=== PATIENT | male | born 1940 | race Caucasian/White ===

== ENCOUNTER → 2017-07-27 | Emergency (ER) | payer OTHER ==
[~2017-07-27] VITALS: Ht 177.8 cm; Wt 110.0 kg
[~2017-07-27] MED LIST: TAM75C PO; normal saline 1000ML IV soln IVB ONE; oseltamivir phos 75mg capsule PO ONE
[2017-07-27 12:46] LABS: BASOPHILS % (AUTO) 0 % (0-1); EOSINOPHILS # (AUTO) 0.2 X10'3 (0-0.9); EOSINOPHILS % (AUTO) 2.7 % (0-6); HEMATOCRIT 41.5 % (42.0-52.0); LYMPHOCYTES # (AUTO) 0.4 X10'3 (1.1-4.8); LYMPHOCYTES % (AUTO) 6.7 % (21-51); MEAN CORPUSCULAR HEMOGLOBIN 32.7 PG (27.0-31.0); MEAN CORPUSCULAR HGB CONC 33.6 % (33.0-36.5); MEAN CORPUSCULAR VOLUME 97.3 FL (78-98); MEAN PLATELET VOLUME 6.3 FL (7.4-10.4); MONOCYTES # (AUTO) 0.6 X10'3 (0-0.9); MONOCYTES % (AUTO) 11.4 % (2-12); NEUTROPHILS # (AUTO) 4.4 X10'3 (1.8-7.7); NEUTROPHILS % (AUTO) 79.2 % (42-75); PLATELET COUNT 141 X10'3 (140-440); RED BLOOD COUNT 4.27 X10'6 (4.70-6.10); RED CELL DISTRIBUTION WIDTH 14.5 % (11.5-14.5); WHITE BLOOD COUNT 5.6 X10'3 (4.5-11.0)
[2017-07-27 13:01] LABS: ALANINE AMINOTRANSFERASE 42 U/L (12-78); ALBUMIN 3.4 G/DL (3.4-5.0); ALKALINE PHOSPHATASE 60 IU/L (46-116); ANION GAP 14 (8-16); ASPARTATE AMINO TRANSFERASE 22 U/L (10-37); BILIRUBIN,TOTAL 0.5 MG/DL (0.1-1.0); BLOOD UREA NITROGEN 54 MG/DL (7-18); CALCIUM 8.6 MG/DL (8.5-10.1); CHLORIDE 106 MMOL/L (99-107); CREATININE 2.45 MG/DL (0.60-1.10); GLUCOSE 111 MG/DL (70-104); POTASSIUM 3.7 MMOL/L (3.5-5.1); SODIUM 138 MMOL/L (135-145); TOTAL CARBON DIOXIDE 17.7 MMOL/L (24-32); TOTAL PROTEIN 6.8 G/DL (6.4-8.2); eGFR 26 ML/MIN
[2017-07-27 15:14] VITALS: BP 118/62
== END | disposition home or self-care (01) ==
LOC: ER 11:04
DX: N17.9 Acute kidney failure, unspecified (principal); R05 Cough; R51 Headache; R19.7 Diarrhea, unspecified; Z94.2 Lung transplant status; Z79.899 Other long term (current) drug therapy; Z88.8 Allergy status to other drugs, medicaments and biological substances
CPT/HCPCS: 36415; 80053; 83605; 85025; 87040; 87070; 87077; 87186; 87502; 87503; 93005; 96360; 99285; J7030

== ENCOUNTER 2020-08-01 07:41 | Emergency (ER) | payer OTHER ==
[~2020-08-01] VITALS: Ht 177.8 cm; Wt 90.0 kg
--- NOTE | 2020-08-01 08:05 | NUR ---
PATIENT STATES THAT HE HAD COVID TEST YESTERDAY WHEN HE WAS AT [facility] AND IT WAS NEGATIVE.
[2020-08-01 09:27] LABS: BASOPHILS % (AUTO) 0.6 % (0-1); EOSINOPHILS % (AUTO) 0.7 % (0-6); HEMATOCRIT 33.1 % (42.0-52.0); HEMOGLOBIN 10.8 g/dl (14.0-17.9); LYMPHOCYTES # (AUTO) 0.4 X10'3 (1.1-4.8); LYMPHOCYTES % (AUTO) 5.4 % (21-51); MEAN CORPUSCULAR HEMOGLOBIN 34.4 PG (27.0-31.0); MEAN CORPUSCULAR HGB CONC 32.7 g/dL (33.0-36.5); MEAN CORPUSCULAR VOLUME 105.2 FL (78-98); MEAN PLATELET VOLUME 7.9 FL (7.4-10.4); MONOCYTES # (AUTO) 0.6 X10'3 (0-0.9); MONOCYTES % (AUTO) 8.8 % (2-12); NEUTROPHILS # (AUTO) 5.8 X10'3 (1.8-7.7); NEUTROPHILS % (AUTO) 84.5 % (42-75); PLATELET COUNT 207 X10'3 (140-440); RED BLOOD COUNT 3.14 X10'6 (4.70-6.10); RED CELL DISTRIBUTION WIDTH 13.1 % (11.5-14.5); WHITE BLOOD COUNT 6.9 X10'3 (4.5-11.0)
[2020-08-01] MEDS ORDERED: ketorolac trometh. 30mg/ml inj. IV ONE (09:30)
[2020-08-01 09:55] LABS: ALANINE AMINOTRANSFERASE 20 U/L (12-78); ALBUMIN 2.7 G/DL (3.4-5.0); ALBUMIN/GLOBULIN RATIO 0.6 (1.1-1.5); ALKALINE PHOSPHATASE 88 IU/L (46-116); ANION GAP 9 (8-16); ASPARTATE AMINO TRANSFERASE 41 U/L (10-37); BILIRUBIN,TOTAL 0.5 MG/DL (0.1-1.0); BLOOD UREA NITROGEN 42 MG/DL (7-18); C-REACTIVE PROTEIN 21.85 MG/DL (0.0-0.5); CALCIUM 9.2 MG/DL (8.5-10.1); CHLORIDE 103 MMOL/L (99-107); CREATININE 1.75 MG/DL (0.60-1.10); GLUCOSE 103 MG/DL (70-104); SODIUM 140 MMOL/L (135-145); TOTAL PROTEIN 7.6 G/DL (6.4-8.2); eGFR 38 ML/MIN
[2020-08-01 09:57] LABS: POTASSIUM 6.2 MMOL/L (3.5-5.1)
[2020-08-01] MEDS ORDERED: ketorolac tromethamine 15mg/ml inj. IV ONE (11:10)
[2020-08-01 11:35] VITALS: BP 126/77
== END 2020-08-01 12:05 | disposition home or self-care (01) ==
LOC: ER 07:41
DX: I48.91 Unspecified atrial fibrillation (principal); R07.89 Other chest pain; Z94.2 Lung transplant status; Z90.2 Acquired absence of lung [part of]; Z88.8 Allergy status to other drugs, medicaments and biological substances
CPT/HCPCS: 36415; 71045; 80053; 84484; 85025; 86140; 93005; 96374; 96376; 99285; J1885

== ENCOUNTER 2021-08-28 16:59 | Emergency (ER) | payer OTHER ==
[~2021-08-28] VITALS: Ht 177.8 cm; Wt 97.7 kg
[2021-08-28] MEDS ORDERED: SOTROVIMAB 500mg injection 500 MG in normal saline 100ml IV soln 100 ML IV ONE (17:10)
[2021-08-28] MEDS ORDERED: normal saline 1000ML IV soln IVB ONE (17:10)
[2021-08-28 17:21] VITALS: BP 167/83
[2021-08-28 17:51] LABS: BASOPHILS % (AUTO) 0.3 % (0-1); EOSINOPHILS % (AUTO) 0.5 % (0-6); HEMATOCRIT 30.8 % (42.0-52.0); HEMOGLOBIN 10.2 g/dl (14.0-17.9); LYMPHOCYTES # (AUTO) 0.3 X10'3 (1.1-4.8); LYMPHOCYTES % (AUTO) 6.5 % (21-51); MEAN CORPUSCULAR HEMOGLOBIN 34.6 PG (27.0-31.0); MEAN PLATELET VOLUME 6.5 FL (7.4-10.4); MONOCYTES # (AUTO) 0.5 X10'3 (0-0.9); MONOCYTES % (AUTO) 13.5 % (2-12); NEUTROPHILS # (AUTO) 3.2 X10'3 (1.8-7.7); NEUTROPHILS % (AUTO) 79.2 % (42-75); PLATELET COUNT 112 X10'3 (140-440); RED BLOOD COUNT 2.94 X10'6 (4.70-6.10); RED CELL DISTRIBUTION WIDTH 13.3 % (11.5-14.5)
[2021-08-28 18:08] LABS: ALANINE AMINOTRANSFERASE 23 U/L (12-78); ALBUMIN/GLOBULIN RATIO 0.9 (1.1-1.5); ALKALINE PHOSPHATASE 70 IU/L (46-116); ANION GAP 9 (8-16); ASPARTATE AMINO TRANSFERASE 25 U/L (10-37); BILIRUBIN,TOTAL 0.2 MG/DL (0.1-1.0); BLOOD UREA NITROGEN 35 MG/DL (7-18); BUN/CREATININE RATIO 17.8 (5.4-32.0); CALCIUM 8.9 MG/DL (8.5-10.1); CHLORIDE 102 MMOL/L (99-107); CREATININE 1.97 MG/DL (0.60-1.10); GLUCOSE 154 MG/DL (70-104); POTASSIUM 4.6 MMOL/L (3.5-5.1); SODIUM 139 MMOL/L (135-145); TOTAL CARBON DIOXIDE 28.1 MMOL/L (24-32); TOTAL PROTEIN 6.5 G/DL (6.4-8.2); eGFR 33 ML/MIN
== END 2021-08-28 19:17 | disposition home or self-care (01) ==
LOC: ER 17:00
DX: U07.1 COVID-19 (principal); R09.89 Other specified symptoms and signs involving the circulatory and respiratory systems; R06.02 Shortness of breath; R05.9 Cough, unspecified; R53.1 Weakness; I48.91 Unspecified atrial fibrillation; Z98.890 Other specified postprocedural states; Z88.8 Allergy status to other drugs, medicaments and biological substances
CPT/HCPCS: 36415; 71045; 80053; 85025; 99284; J3490; J7030; M0247; Q0247

== ENCOUNTER 2022-01-25 11:35 | Inpatient (IN) | payer MEDICARE, OTHER ==
[~2022-01-25] VITALS: Ht 177.8 cm; Wt 98.6 kg
[2022-01-25 13:27] LABS: BASOPHILS % (AUTO) 0.1 % (0-1); EOSINOPHILS # (AUTO) 0.1 X10'3 (0-0.9); EOSINOPHILS % (AUTO) 1.3 % (0-6); HEMATOCRIT 25.6 % (42.0-52.0); HEMOGLOBIN 8.3 g/dl (14.0-17.9); LYMPHOCYTES # (AUTO) 0.4 X10'3 (1.1-4.8); LYMPHOCYTES % (AUTO) 7.8 % (21-51); MEAN CORPUSCULAR HEMOGLOBIN 33.1 PG (27.0-31.0); MEAN CORPUSCULAR HGB CONC 32.4 g/dL (33.0-36.5); MEAN CORPUSCULAR VOLUME 102.2 FL (78-98); MEAN PLATELET VOLUME 7.2 FL (7.4-10.4); MONOCYTES # (AUTO) 0.5 X10'3 (0-0.9); MONOCYTES % (AUTO) 9.2 % (2-12); NEUTROPHILS # (AUTO) 4.2 X10'3 (1.8-7.7); NEUTROPHILS % (AUTO) 81.6 % (42-75); PLATELET COUNT 161 X10'3 (140-440); RED CELL DISTRIBUTION WIDTH 13.8 % (11.5-14.5); WHITE BLOOD COUNT 5.1 X10'3 (4.5-11.0)
[2022-01-25 13:41] LABS: ALANINE AMINOTRANSFERASE 22 U/L (12-78); ALBUMIN 3.3 G/DL (3.4-5.0); ALBUMIN/GLOBULIN RATIO 1.1 (1.1-1.5); ALKALINE PHOSPHATASE 58 IU/L (46-116); ANION GAP 10 (8-16); ASPARTATE AMINO TRANSFERASE 15 U/L (10-37); BILIRUBIN,TOTAL 0.3 MG/DL (0.1-1.0); BLOOD UREA NITROGEN 47 MG/DL (7-18); BUN/CREATININE RATIO 22.1 (5.4-32.0); CALCIUM 8.6 MG/DL (8.5-10.1); CHLORIDE 106 MMOL/L (99-107); CREATININE 2.13 MG/DL (0.60-1.10); GLUCOSE 118 MG/DL (70-104); POTASSIUM 5.1 MMOL/L (3.5-5.1); SODIUM 143 MMOL/L (135-145); TOTAL CARBON DIOXIDE 27.1 MMOL/L (24-32); TOTAL PROTEIN 6.4 G/DL (6.4-8.2); eGFR 30 ML/MIN
[2022-01-25] MEDS ORDERED: OLAN5TAB5 PO (16:44)
[2022-01-25] MEDS ORDERED: BENZ1TAB7 PO (16:45)
[2022-01-25] MEDS ORDERED: FURO20TA4 PO (17:07)
[2022-01-25] MEDS ORDERED: FLUT16SP26 BOTHNARES (17:07)
[2022-01-25] MEDS ORDERED: [UNRECOGNIZED DRUG - CODE] PO ×2 (17:07)
[2022-01-25] MEDS ORDERED: FERR-106 PO (17:07)
[2022-01-25] MEDS ORDERED: FLUT12AE9 PO (17:07)
[2022-01-25] MEDS ORDERED: ISAV186C2 PO (17:07)
[2022-01-25] MEDS ORDERED: TRAZ-251 PO (17:07)
[2022-01-25] MEDS ORDERED: PRE5T PO (17:07)
[2022-01-25] MEDS ORDERED: TACR0.5C3 PO (17:07)
[2022-01-25] MEDS ORDERED: CALC-331 PO (17:07)
[2022-01-25] MEDS ORDERED: CALC-4 PO (17:07)
[2022-01-25] MEDS ORDERED: PRAV20TA4 PO (17:07)
[2022-01-25] MEDS ORDERED: SALM50DI2 PO (17:07)
[2022-01-25] MEDS ORDERED: ASPI-611 PO (17:07)
[2022-01-25] MEDS ORDERED: SULF-14 PO (17:07)
[2022-01-25] MEDS ORDERED: METO25TA6 PO (17:07)
[2022-01-25] MEDS ORDERED: SERT-434 PO (17:07)
[2022-01-25] MEDS ORDERED: MELA5TAB14 PO (17:07)
[2022-01-25] MEDS ORDERED: ACYC200C30 PO (17:07)
[2022-01-25] MEDS ORDERED: HYDR-3972 PO (17:07)
[2022-01-25] MEDS ORDERED: AZIT-83 PO (17:07)
[2022-01-25] MEDS ORDERED: FOLI1TAB27 PO (17:07)
[2022-01-25] MEDS ORDERED: CETI10TA14 PO (17:07)
[2022-01-25] MEDS ORDERED: ESOM40CA54 PO (17:07)
[2022-01-25] MEDS ORDERED: CHOL100046 PO (17:12)
[2022-01-25] MEDS ORDERED: magnesium 2GM in 50ml NS 50 ML IV PRN (17:15)
[2022-01-25] MEDS ORDERED: POTASSIUM BICARB 20meq eff tab 20 MEQ TABLET.EFF PO PRN ×2 (17:15)
[2022-01-25] MEDS ORDERED: ondansetron/PF 4mg/2ml inj IV PRN (17:15)
[2022-01-25] MEDS ORDERED: acetaminophen 325mg tablet PO PRN ×2 (17:15)
[2022-01-25] MEDS ORDERED: magnesium 4gm in 100ml NS 100 ML IV PRN (17:15)
[2022-01-25] MEDS ORDERED: potassium CL 10mEq/100ml bag 100 ML IV PRN (17:15)
[2022-01-25] MEDS ORDERED: magnesium Cl slow-release 64mg tablet PO PRN (17:15)
[2022-01-25] MEDS ORDERED: HYDROcodone/acetaminophen 5mg/325mg tablet PO PRN (17:15)
[2022-01-25] MEDS ORDERED: morphine 2 MG/ML inj. syringe IV PRN (17:15)
[2022-01-25] MEDS ORDERED: azithromycin 250mg tablet PO SCH (17:25)
[2022-01-25] MEDS ORDERED: HYDROcodone/acetaminophen 10/325mg tab PO PRN (17:25)
[2022-01-25] MEDS ORDERED: albuterol 2.5 MG/3 ML nebule NEB PRN (17:25)
[2022-01-25] MEDS: furosemide 20 MG/2 ML vial IV SCH ×2 (18:15→22:37)
[2022-01-25] MEDS: CefTRIAXone 2gm/NS 100ml IVPB 100 ML IV SCH (18:16)
[2022-01-25 18:50] LABS: % IRON SATURATION 26 % (11-46); IRON 69 UG/DL (53-167); TOTAL IRON BINDING CAPACITY 264 UG/DL (259-388)
[2022-01-25] MEDS: K and/or MAG REPLACEMENT MC SCH (19:46)
[2022-01-25] MEDS ORDERED: tacrolimus anhydrous 1mg capsule PO SCH (20:00)
[2022-01-25] MEDS ORDERED: tacrolimus anhydrous 0.5mg capsule PO SCH (21:00)
[2022-01-25] MEDS: albuterol 2.5 MG/3 ML nebule NEB SCH (21:00)
[2022-01-25] MEDS: traZODone 50mg tablet PO SCH (21:46)
[2022-01-25] MEDS: Melatonin 3mg tablet PO SCH (21:46)
[2022-01-25] MEDS: pantoprazole 40mg Tablet.DR PO SCH (21:46)
[2022-01-25] MEDS: heparin, porcine 5000 units/ml vial SQ SCH (21:47)
[2022-01-25] MEDS: metoprolol tartrate 25mg tablet PO SCH (21:47)
[2022-01-25] MEDS: atorvastatin 10mg tablet PO SCH (22:00)
--- NOTE | 2022-01-25 22:42 | NUR ---
Patient in room ED 4. I have received report from LUIS EDOUARD RN and had the opportunity to ask questions and assume patient care. Addendum: 01/25/22 at 2242 by Marcie Weller RN Amended: Links added.
[2022-01-25 23:36] VITALS: BP 136/68
[2022-01-26] MEDS: tacrolimus anhydrous 0.5mg capsule PO SCH ×2 (00:33→20:58)
[2022-01-26 01:39] VITALS: BP 131/64
[2022-01-26] MEDS: albuterol 2.5 MG/3 ML nebule NEB SCH ×4 (02:48→20:01)
[2022-01-26 06:45] LABS: BASOPHILS % (AUTO) 0.2 % (0-1); EOSINOPHILS # (AUTO) 0.1 X10'3 (0-0.9); EOSINOPHILS % (AUTO) 1.5 % (0-6); HEMATOCRIT 23.3 % (42.0-52.0); HEMOGLOBIN 7.8 g/dl (14.0-17.9); LYMPHOCYTES # (AUTO) 0.4 X10'3 (1.1-4.8); LYMPHOCYTES % (AUTO) 9.8 % (21-51); MEAN CORPUSCULAR HGB CONC 33.4 g/dL (33.0-36.5); MEAN PLATELET VOLUME 7.4 FL (7.4-10.4); MONOCYTES # (AUTO) 0.6 X10'3 (0-0.9); MONOCYTES % (AUTO) 13.8 % (2-12); NEUTROPHILS # (AUTO) 3.3 X10'3 (1.8-7.7); NEUTROPHILS % (AUTO) 74.7 % (42-75); PLATELET COUNT 139 X10'3 (140-440); RED BLOOD COUNT 2.28 X10'6 (4.70-6.10); RED CELL DISTRIBUTION WIDTH 13.5 % (11.5-14.5); WHITE BLOOD COUNT 4.4 X10'3 (4.5-11.0)
--- NOTE | 2022-01-26 06:53 | NUR ---
Problems reprioritized. Patient report given, questions answered & plan of care reviewed with JAZIEL DAI. VITALS TAKEN AND EKG DONE AND SUHAS AWARE PT HAVING CHEST PAIN AND SUHAS CALLING THE MD. Addendum: 01/26/22 at 0654 by Marcie Weller RN Amended: Links added.
[2022-01-26 07:00] VITALS: BP 157/56
[2022-01-26 07:05] LABS: ALANINE AMINOTRANSFERASE 18 U/L (12-78); ALBUMIN 3.1 G/DL (3.4-5.0); ALBUMIN/GLOBULIN RATIO 1.1 (1.1-1.5); ALKALINE PHOSPHATASE 53 IU/L (46-116); ANION GAP 13 (8-16); ASPARTATE AMINO TRANSFERASE 15 U/L (10-37); BILIRUBIN,TOTAL 0.3 MG/DL (0.1-1.0); BLOOD UREA NITROGEN 45 MG/DL (7-18); BUN/CREATININE RATIO 23.8 (5.4-32.0); CALCIUM 8.5 MG/DL (8.5-10.1); CHLORIDE 105 MMOL/L (99-107); CREATININE 1.89 MG/DL (0.60-1.10); GLUCOSE 100 MG/DL (70-104); POTASSIUM 4.5 MMOL/L (3.5-5.1); SODIUM 144 MMOL/L (135-145); TOTAL CARBON DIOXIDE 26.2 MMOL/L (24-32); TOTAL PROTEIN 5.8 G/DL (6.4-8.2); eGFR 34 ML/MIN
[2022-01-26] MEDS ORDERED: aspirin 81mg tab.chew PO ONE (07:25)
--- NOTE | 2022-01-26 07:29 | NUR ---
Pt c/o stabbing chest pain in the beginning of shift. pain radiates to L shoulder. EKG done, VS taken. Dr. Rodriguez notified. Orders for Troponin stat and Aspirin 81 mg obtained. Will monitor.
[2022-01-26] MEDS: sulfamethoxazole/trimethoprim SS (400mg/80mg) tab (single-strength) PO SCH (08:00)
[2022-01-26] MEDS ORDERED: ISAVUCONAZONIUM SULFATE 186 MG PO SCH ×2 (08:00→22:53)
[2022-01-26] MEDS: aspirin 81mg, enteric-coated 1 TAB TABLET.DR PO SCH (08:00)
[2022-01-26] MEDS: K and/or MAG REPLACEMENT MC SCH ×2 (08:00→19:37)
[2022-01-26] MEDS ORDERED: predniSONE 5mg tablet PO SCH (08:00)
[2022-01-26] MEDS: furosemide 20 MG/2 ML vial IV SCH ×2 (08:19→19:33)
[2022-01-26] MEDS: ferrous sulfate 325mg tablet PO SCH (08:20)
[2022-01-26] MEDS: metoprolol tartrate 25mg tablet PO SCH ×2 (08:20→19:36)
[2022-01-26] MEDS: tacrolimus anhydrous 1mg capsule PO SCH (08:23)
[2022-01-26] MEDS: pantoprazole 40mg Tablet.DR PO SCH ×2 (08:23→20:04)
[2022-01-26] MEDS: cetirizine 10mg tablet PO SCH (08:24)
[2022-01-26] MEDS: sertraline 50mg tablet PO SCH (08:24)
[2022-01-26] MEDS: heparin, porcine 5000 units/ml vial SQ SCH ×2 (08:25→19:34)
[2022-01-26] MEDS ORDERED: furosemide 20 MG/2 ML vial IV ONE (08:25)
[2022-01-26] MEDS: cholecalciferol (vitamin D3) 1,000 unit (25mcg) tablet PO SCH (09:01)
[2022-01-26] MEDS: azithromycin 250mg tablet PO SCH (09:02)
[2022-01-26] MEDS: CefTRIAXone 2gm/NS 100ml IVPB 100 ML IV SCH (09:07)
[2022-01-26] MEDS: methylPREDNISolone sod succ 125mg/2ml vial IV SCH ×2 (09:08→19:37)
[2022-01-26 11:00] VITALS: BP 141/57
[2022-01-26 12:07] LABS: ABG BASE EXCESS 1.5 mmol/L (-2.0-2.0); ABG HCO3 26.1 mmol/L (22.0-26.0); ABG OXYGEN SATURATION 97.1 % (94-97); ABG PO2 (T) 109.2 mmHg (75.0-100.0); ALLEN'S TEST POSITIVE; FCOHb 1.6 % (0.0-3.9); FLOW 5 L/min; FMetHb 0.3 % (0.0-1.5); FO2Hb 95.3 % (94-97); TOTAL HEMOGLOBIN 8.1 G/dl (14.0-18.0)
[2022-01-26 15:00] VITALS: BP 135/99
[2022-01-26 18:00] VITALS: BP 156/76
--- NOTE | 2022-01-26 18:52 | NUR ---
Patient in room U 3014. I have received report from JAZIEL DAI and had the opportunity to ask questions and assume patient care. Addendum: 01/26/22 at 1852 by Marcie Weller RN Amended: Links added.
[2022-01-26] MEDS: HYDROcodone/acetaminophen 10/325mg tab PO PRN (19:35)
[2022-01-26] MEDS: traZODone 50mg tablet PO SCH (20:58)
[2022-01-26] MEDS: atorvastatin 10mg tablet PO SCH (20:59)
[2022-01-26] MEDS: Melatonin 3mg tablet PO SCH (21:04)
--- NOTE | 2022-01-26 21:20 | NUR ---
brought in one of his anti rejection meds plus another in for us and capa machine then called Dr Fox for orders to use pt's own cpap machine with current settings 5 l 02 set at 2 and 16. orders top give him his meds and as ordered at [facility] for pt received as well. Then meds taken to pharmacy and had them check ut the medicaTIONS AND WILL GIVE WHEN APPROVED BY THE PHARMACIST. AFTER ALL THIS DONE ORIGINAL MED SHEET SHOWING HIS MEDS STORED IN THE PHARMACY and made a copy of it and gave it to the pt and told to ask rn to get meds for him from pharmacy before leaving and slip is in the chart.
[2022-01-26 22:00] VITALS: BP 150/74
[2022-01-27 02:00] VITALS: BP 112/81
[2022-01-27] MEDS: albuterol 2.5 MG/3 ML nebule NEB SCH ×2 (02:56→08:50)
[2022-01-27 06:00] VITALS: BP 117/55
--- NOTE | 2022-01-27 07:00 | NUR ---
Problems reprioritized. Patient report given, questions answered & plan of care reviewed with JAZIEL DIAZ. Addendum: 01/27/22 at 0701 by Marcie Weller RN Amended: Links added.
--- NOTE | 2022-01-27 07:20 | NUR ---
Patient in room PCU 3014. I have received report from JAZIEL Hernandez and had the opportunity to ask questions and assume patient care.
[2022-01-27 07:59] LABS: ALANINE AMINOTRANSFERASE 16 U/L (12-78); ALKALINE PHOSPHATASE 48 IU/L (46-116); ANION GAP 7 (8-16); ASPARTATE AMINO TRANSFERASE 14 U/L (10-37); BILIRUBIN,TOTAL 0.2 MG/DL (0.1-1.0); BLOOD UREA NITROGEN 49 MG/DL (7-18); BUN/CREATININE RATIO 23.2 (5.4-32.0); CALCIUM 8.7 MG/DL (8.5-10.1); CHLORIDE 106 MMOL/L (99-107); CREATININE 2.11 MG/DL (0.60-1.10); GLUCOSE 135 MG/DL (70-104); POTASSIUM 5.1 MMOL/L (3.5-5.1); SODIUM 141 MMOL/L (135-145); TOTAL CARBON DIOXIDE 28.1 MMOL/L (24-32); TOTAL PROTEIN 5.9 G/DL (6.4-8.2); eGFR 30 ML/MIN
[2022-01-27] MEDS: K and/or MAG REPLACEMENT MC SCH ×2 (08:00→20:00)
[2022-01-27 08:45] LABS: BASOPHILS % (AUTO) 0 % (0-1); EOSINOPHILS % (AUTO) 0 % (0-6); HEMATOCRIT 22.3 % (42.0-52.0); HEMOGLOBIN 7.3 g/dl (14.0-17.9); LYMPHOCYTES # (AUTO) 0.2 X10'3 (1.1-4.8); LYMPHOCYTES % (AUTO) 7.1 % (21-51); MEAN CORPUSCULAR HEMOGLOBIN 33.2 PG (27.0-31.0); MEAN CORPUSCULAR HGB CONC 32.7 g/dL (33.0-36.5); MEAN CORPUSCULAR VOLUME 101.4 FL (78-98); MEAN PLATELET VOLUME 7.5 FL (7.4-10.4); MONOCYTES # (AUTO) 0.2 X10'3 (0-0.9); MONOCYTES % (AUTO) 9.9 % (2-12); NEUTROPHILS # (AUTO) 1.8 X10'3 (1.8-7.7); PLATELET COUNT 126 X10'3 (140-440); RED CELL DISTRIBUTION WIDTH 13.6 % (11.5-14.5); WHITE BLOOD COUNT 2.1 X10'3 (4.5-11.0)
[2022-01-27 09:57] LABS: TOTAL CELLS COUNTED 100
[2022-01-27 09:59] LABS: PLATELET ESTIMATE DECREASED
[2022-01-27 10:00] VITALS: BP 114/54
[2022-01-27 10:00] LABS: POIKILOCYTOSIS FEW; POLYCHROMASIA FEW
[2022-01-27] MEDS ORDERED: albuterol 2.5 MG/3 ML nebule NEB PRN (10:05)
[2022-01-27] MEDS: furosemide 20 MG/2 ML vial IV SCH ×2 (11:42→20:54)
[2022-01-27] MEDS: methylPREDNISolone sod succ 125mg/2ml vial IV SCH ×2 (11:42→20:58)
[2022-01-27] MEDS: ISAVUCONAZONIUM SULFATE 186 MG PO SCH ×2 (11:44→20:00)
[2022-01-27] MEDS: sulfamethoxazole/trimethoprim SS (400mg/80mg) tab (single-strength) PO SCH (11:44)
[2022-01-27] MEDS: sertraline 50mg tablet PO SCH (11:52)
[2022-01-27] MEDS: cholecalciferol (vitamin D3) 1,000 unit (25mcg) tablet PO SCH (11:52)
[2022-01-27] MEDS: pantoprazole 40mg Tablet.DR PO SCH ×2 (11:52→21:01)
[2022-01-27] MEDS: azithromycin 250mg tablet PO SCH (11:52)
[2022-01-27] MEDS: tacrolimus anhydrous 1mg capsule PO SCH (11:53)
[2022-01-27] MEDS: cetirizine 10mg tablet PO SCH (11:53)
[2022-01-27] MEDS: aspirin 81mg, enteric-coated 1 TAB TABLET.DR PO SCH (11:53)
[2022-01-27] MEDS: metoprolol tartrate 25mg tablet PO SCH ×2 (11:53→21:00)
[2022-01-27] MEDS: ferrous sulfate 325mg tablet PO SCH (11:53)
[2022-01-27] MEDS: heparin, porcine 5000 units/ml vial SQ SCH ×2 (11:54→20:57)
[2022-01-27] MEDS: CefTRIAXone 2gm/NS 100ml IVPB 100 ML IV SCH (11:54)
[2022-01-27 14:00] VITALS: BP 137/72
[2022-01-27] MEDS: ipratropium/albuterol 3ml nebule NEB SCH ×2 (14:10→20:31)
[2022-01-27 18:00] VITALS: BP 142/68
--- NOTE | 2022-01-27 18:31 | NUR ---
Patient in room U 3014. I have received report from JAZIEL BAGLEY and had the opportunity to ask questions and assume patient care. Addendum: 01/27/22 at 1831 by Marcie Weller RN Amended: Links added.
--- NOTE | 2022-01-27 18:40 | NUR ---
Problems reprioritized. Patient report given, questions answered & plan of care reviewed with JAZIEL Jack.
[2022-01-27 19:05] LABS: OCCULT BLOOD STOOL NEGATIVE (Neg)
[2022-01-27] MEDS: atorvastatin 10mg tablet PO SCH (21:00)
[2022-01-27] MEDS: Melatonin 3mg tablet PO SCH (21:01)
[2022-01-27] MEDS: traZODone 50mg tablet PO SCH (21:01)
[2022-01-27] MEDS: HYDROcodone/acetaminophen 10/325mg tab PO PRN (21:02)
[2022-01-27] MEDS: tacrolimus anhydrous 0.5mg capsule PO SCH (21:03)
[2022-01-27 22:00] VITALS: BP 165/80
--- NOTE | 2022-01-28 00:37 | NUR ---
awoke cpap remains on sat up edge of bed to void by urinal.
[2022-01-28 02:00] VITALS: BP 150/68
[2022-01-28 06:30] VITALS: BP 145/100
[2022-01-28 06:40] LABS: BASOPHILS % (AUTO) 0 % (0-1); EOSINOPHILS % (AUTO) 0 % (0-6); HEMATOCRIT 22.2 % (42.0-52.0); HEMOGLOBIN 7.4 g/dl (14.0-17.9); LYMPHOCYTES # (AUTO) 0.2 X10'3 (1.1-4.8); LYMPHOCYTES % (AUTO) 5.6 % (21-51); MEAN CORPUSCULAR HEMOGLOBIN 34.2 PG (27.0-31.0); MEAN CORPUSCULAR HGB CONC 33.6 g/dL (33.0-36.5); MEAN PLATELET VOLUME 7.4 FL (7.4-10.4); MONOCYTES # (AUTO) 0.2 X10'3 (0-0.9); NEUTROPHILS # (AUTO) 2.4 X10'3 (1.8-7.7); NEUTROPHILS % (AUTO) 88.4 % (42-75); PLATELET COUNT 138 X10'3 (140-440); RED BLOOD COUNT 2.17 X10'6 (4.70-6.10); RED CELL DISTRIBUTION WIDTH 13.8 % (11.5-14.5); WHITE BLOOD COUNT 2.7 X10'3 (4.5-11.0)
--- NOTE | 2022-01-28 06:50 | NUR ---
Problems reprioritized. Patient report given, questions answered & plan of care reviewed with JAZIEL WINTER. Addendum: 01/28/22 at 0650 by Marcie Weller RN Amended: Links added.
[2022-01-28 06:55] LABS: ALANINE AMINOTRANSFERASE 23 U/L (12-78); ALKALINE PHOSPHATASE 50 IU/L (46-116); ANION GAP 5 (8-16); ASPARTATE AMINO TRANSFERASE 17 U/L (10-37); BILIRUBIN,TOTAL 0.2 MG/DL (0.1-1.0); BLOOD UREA NITROGEN 60 MG/DL (7-18); CALCIUM 8.6 MG/DL (8.5-10.1); CHLORIDE 101 MMOL/L (99-107); CREATININE 2.22 MG/DL (0.60-1.10); GLUCOSE 156 MG/DL (70-104); POTASSIUM 5.1 MMOL/L (3.5-5.1); SODIUM 135 MMOL/L (135-145); TOTAL CARBON DIOXIDE 28.7 MMOL/L (24-32); TOTAL PROTEIN 6.1 G/DL (6.4-8.2); eGFR 28 ML/MIN
--- NOTE | 2022-01-28 06:58 | NUR ---
Patient in room PCU 3014. I have received report from guanako bergman and had the opportunity to ask questions and assume patient care.
[2022-01-28] MEDS: sulfamethoxazole/trimethoprim SS (400mg/80mg) tab (single-strength) PO SCH (08:00)
[2022-01-28] MEDS: metoprolol tartrate 25mg tablet PO SCH (08:00)
[2022-01-28] MEDS: heparin, porcine 5000 units/ml vial SQ SCH ×2 (08:00→09:24)
[2022-01-28] MEDS: K and/or MAG REPLACEMENT MC SCH (08:00)
[2022-01-28 08:41] LABS: PLATELET ESTIMATE DECREASED; TOTAL CELLS COUNTED 100
[2022-01-28 08:42] LABS: POIKILOCYTOSIS FEW
[2022-01-28] MEDS: aspirin 81mg, enteric-coated 1 TAB TABLET.DR PO SCH (09:19)
[2022-01-28] MEDS: cetirizine 10mg tablet PO SCH (09:19)
[2022-01-28] MEDS: pantoprazole 40mg Tablet.DR PO SCH (09:19)
[2022-01-28 09:20] VITALS: BP 108/71
[2022-01-28] MEDS: azithromycin 250mg tablet PO SCH (09:22)
[2022-01-28] MEDS: sertraline 50mg tablet PO SCH (09:23)
[2022-01-28] MEDS: ferrous sulfate 325mg tablet PO SCH (09:23)
[2022-01-28] MEDS: methylPREDNISolone sod succ 125mg/2ml vial IV SCH (09:23)
[2022-01-28] MEDS: cholecalciferol (vitamin D3) 1,000 unit (25mcg) tablet PO SCH (09:23)
[2022-01-28] MEDS: furosemide 20 MG/2 ML vial IV SCH (09:23)
[2022-01-28] MEDS: ISAVUCONAZONIUM SULFATE 186 MG PO SCH (09:24)
[2022-01-28] MEDS: tacrolimus anhydrous 1mg capsule PO SCH (09:24)
[2022-01-28] MEDS: ipratropium/albuterol 3ml nebule NEB SCH ×2 (09:57→14:17)
[2022-01-28] MEDS ORDERED: CefTRIAXone inj 2,000 MG in dextrose 5%-water 50ml 50 ML IV SCH (10:00)
[2022-01-28 11:07] VITALS: BP 140/80
[2022-01-28] MEDS ORDERED: sulfamethoxazole/trimethoprim DS (800/160mg) tablet PO SCH (13:00)
[2022-01-28] MEDS ORDERED: PRED20TA PO (13:47)
[2022-01-28] MEDS ORDERED: CEFU500T66 PO (13:47)
[2022-01-28 14:00] VITALS: BP 160/71
--- NOTE | 2022-01-28 17:32 | NUR ---
PT DISCHARGED IN STABLE CONDITION. REFUSED BLOOD TRANSFUSION PRIOR TO DC D/T BLOOD WOULD HAVE TO COME FROM MD RUSLAN AWARE. FOLLOW UP INSTRUCTIONS GIVEN, ALL QUESTIONS ANSWERED. IV DC CANULA INTACT. Addendum: 01/28/22 at 1740 by Tennille Angeles RN Amended: Links added.
== END 2022-01-28 16:03 | disposition home or self-care (01) | DRG 193 ==
LOC: ER 11:36 → ED HOLD 17:20 → EDBEDREQ 21:10 → PCU 3S 23:30
PROVIDERS: ADMIT Internal Medicine; ATTEND Internal Medicine
DX: J18.9 Pneumonia, unspecified organism (principal); J96.21 Acute and chronic respiratory failure with hypoxia; N17.9 Acute kidney failure, unspecified; Z94.2 Lung transplant status; I50.30 Unspecified diastolic (congestive) heart failure; D61.818 Other pancytopenia; M54.9 Dorsalgia, unspecified; R05.3 Chronic cough; Z66 Do not resuscitate; J43.9 Emphysema, unspecified; R07.89 Other chest pain; Z20.822 Contact with and (suspected) exposure to COVID-19; G89.29 Other chronic pain; I48.91 Unspecified atrial fibrillation; N18.9 Chronic kidney disease, unspecified; Z77.090 Contact with and (suspected) exposure to asbestos; Z99.81 Dependence on supplemental oxygen; Z88.8 Allergy status to other drugs, medicaments and biological substances; Z28.310 Unvaccinated for COVID-19
CPT/HCPCS: 36415; 36600; 71045; 71250; 80053; 82272; 82803; 83540; 83550; 83605; 83880; 84484; 85007; 85018; 85025; 86885; 86900; 86901; 86945; 87040; 87081; 87635; 93005; 93306; 94640; 94760; 97116; 97162; 97530; 99285; A4349; G0378; J0696; J1644; J1940; J2930; J7040; J7060; J7507

== ENCOUNTER 2022-04-30 15:14 | Emergency (ER) | payer MEDICARE, OTHER ==
[~2022-04-30] VITALS: Ht 177.8 cm; Wt 100.0 kg
[~2022-04-30 15:14] MED LIST changes: +ACYC200C30 PO; +ASPI-611 PO; +AZIT-83 PO; +CALC-331 PO; +CALC-4 PO; +CEFU500T66 PO; +CETI10TA14 PO; +CHOL100046 PO; +ESOM40CA54 PO; +FERR-106 PO; +FLUT12AE9 PO; +FLUT16SP26 BOTHNARES; +FOLI1TAB27 PO; +FURO20TA4 PO; +HYDR-3972 PO; +ISAV186C2 PO; +MELA5TAB14 PO; +METO25TA6 PO; +PRAV20TA4 PO; +PRED20TA PO; +SALM50DI2 PO; +SERT-434 PO; +SULF-14 PO; +TACR0.5C3 PO; -TAM75C PO; +TRAZ-251 PO; +[UNRECOGNIZED DRUG - CODE] PO; -normal saline 1000ML IV soln IVB ONE; -oseltamivir phos 75mg capsule PO ONE
[2022-04-30 16:11] LABS: BASOPHILS % (AUTO) 0.1 % (0-1); EOSINOPHILS # (AUTO) 0.1 X10'3 (0-0.9); EOSINOPHILS % (AUTO) 1.9 % (0-6); HEMATOCRIT 24.3 % (42.0-52.0); LYMPHOCYTES # (AUTO) 0.3 X10'3 (1.1-4.8); LYMPHOCYTES % (AUTO) 6.4 % (21-51); MEAN CORPUSCULAR HEMOGLOBIN 34.3 PG (27.0-31.0); MEAN CORPUSCULAR HGB CONC 32.8 g/dL (33.0-36.5); MEAN CORPUSCULAR VOLUME 104.5 FL (78-98); MEAN PLATELET VOLUME 7.4 FL (7.4-10.4); MONOCYTES # (AUTO) 0.5 X10'3 (0-0.9); MONOCYTES % (AUTO) 11.1 % (2-12); NEUTROPHILS # (AUTO) 3.5 X10'3 (1.8-7.7); NEUTROPHILS % (AUTO) 80.5 % (42-75); PLATELET COUNT 141 X10'3 (140-440); RED BLOOD COUNT 2.32 X10'6 (4.70-6.10); WHITE BLOOD COUNT 4.3 X10'3 (4.5-11.0)
[2022-04-30 16:28] LABS: ALANINE AMINOTRANSFERASE 19 U/L (12-78); ALBUMIN 3.1 G/DL (3.4-5.0); ALBUMIN/GLOBULIN RATIO 0.9 (1.1-1.5); ALKALINE PHOSPHATASE 87 IU/L (46-116); ANION GAP 2 (8-16); ASPARTATE AMINO TRANSFERASE 14 U/L (10-37); BILIRUBIN,TOTAL 0.2 MG/DL (0.1-1.0); BLOOD UREA NITROGEN 50 MG/DL (7-18); BUN/CREATININE RATIO 25.6 (5.4-32.0); CALCIUM 9.1 MG/DL (8.5-10.1); CHLORIDE 106 MMOL/L (99-107); CREATININE 1.95 MG/DL (0.60-1.10); GLUCOSE 126 MG/DL (70-104); POTASSIUM 5.1 MMOL/L (3.5-5.1); SODIUM 142 MMOL/L (135-145); TOTAL CARBON DIOXIDE 34.1 MMOL/L (24-32); TOTAL PROTEIN 6.7 G/DL (6.4-8.2); eGFR 33 ML/MIN
[2022-04-30] MEDS ORDERED: levoFLOXACIN 250mg tablet PO ONE (19:35)
[2022-04-30] MEDS ORDERED: LEVO250T74 PO (19:38)
[2022-04-30] MEDS ORDERED: GUAI120L55 PO (19:38)
[2022-04-30 20:06] VITALS: BP 155/82
== END 2022-04-30 20:08 | disposition home or self-care (01) ==
LOC: ER 15:16
DX: R04.2 Hemoptysis (principal); R06.00 Dyspnea, unspecified; Z88.8 Allergy status to other drugs, medicaments and biological substances; Z79.899 Other long term (current) drug therapy; Z79.82 Long term (current) use of aspirin; Z79.2 Long term (current) use of antibiotics; Z79.1 Long term (current) use of non-steroidal anti-inflammatories (NSAID)
CPT/HCPCS: 36415; 71046; 80053; 83605; 83880; 85025; 87040; 99284

== ENCOUNTER 2022-05-02 07:51 | Emergency (ER) | payer MEDICARE, OTHER ==
[~2022-05-02] VITALS: Ht 177.8 cm; Wt 95.0 kg
[~2022-05-02 07:51] MED LIST changes: +GUAI120L55 PO; +LEVO250T74 PO
[2022-05-02] MEDS ORDERED: LIDOcaine 1% w/EPI 1:100,000 30ml vial (MDV) SQ ONE (08:15)
[2022-05-02] MEDS ORDERED: tranexamic acid 100mg/ml inj. TP ONE (08:15)
[2022-05-02 09:40] LABS: BASOPHILS % (AUTO) 0.1 % (0-1); EOSINOPHILS # (AUTO) 0.1 X10'3 (0-0.9); EOSINOPHILS % (AUTO) 2.4 % (0-6); HEMOGLOBIN 7.7 g/dl (14.0-17.9); LYMPHOCYTES # (AUTO) 0.5 X10'3 (1.1-4.8); LYMPHOCYTES % (AUTO) 10.3 % (21-51); MEAN CORPUSCULAR HEMOGLOBIN 34.4 PG (27.0-31.0); MEAN CORPUSCULAR HGB CONC 33.3 g/dL (33.0-36.5); MEAN CORPUSCULAR VOLUME 103.2 FL (78-98); MEAN PLATELET VOLUME 6.9 FL (7.4-10.4); MONOCYTES # (AUTO) 0.5 X10'3 (0-0.9); MONOCYTES % (AUTO) 11.2 % (2-12); NEUTROPHILS # (AUTO) 3.5 X10'3 (1.8-7.7); PLATELET COUNT 155 X10'3 (140-440); RED BLOOD COUNT 2.23 X10'6 (4.70-6.10); RED CELL DISTRIBUTION WIDTH 13.4 % (11.5-14.5); WHITE BLOOD COUNT 4.5 X10'3 (4.5-11.0)
[2022-05-02 10:03] LABS: ALANINE AMINOTRANSFERASE 14 U/L (12-78); ALBUMIN 2.9 G/DL (3.4-5.0); ALBUMIN/GLOBULIN RATIO 0.8 (1.1-1.5); ALKALINE PHOSPHATASE 82 IU/L (46-116); ANION GAP 6 (8-16); ASPARTATE AMINO TRANSFERASE 12 U/L (10-37); BILIRUBIN,TOTAL 0.2 MG/DL (0.1-1.0); BLOOD UREA NITROGEN 51 MG/DL (7-18); BUN/CREATININE RATIO 25.6 (5.4-32.0); CALCIUM 9.1 MG/DL (8.5-10.1); CHLORIDE 105 MMOL/L (99-107); CREATININE 1.99 MG/DL (0.60-1.10); GLUCOSE 115 MG/DL (70-104); POTASSIUM 4.2 MMOL/L (3.5-5.1); SODIUM 142 MMOL/L (135-145); TOTAL CARBON DIOXIDE 31.3 MMOL/L (24-32); TOTAL PROTEIN 6.4 G/DL (6.4-8.2); eGFR 32 ML/MIN
[2022-05-02 10:42] VITALS: BP 143/79
== END 2022-05-02 10:43 | disposition home or self-care (01) ==
LOC: ER 07:51
DX: R04.0 Epistaxis (principal); Z88.8 Allergy status to other drugs, medicaments and biological substances; Z79.899 Other long term (current) drug therapy; Z79.1 Long term (current) use of non-steroidal anti-inflammatories (NSAID); Z79.2 Long term (current) use of antibiotics
CPT/HCPCS: 36415; 80053; 85025; 99283; J3490

== ENCOUNTER 2022-06-02 10:53 | Emergency (ER) | payer OTHER ==
[~2022-06-02] VITALS: Ht 177.8 cm; Wt 93.2 kg
[~2022-06-02 10:53] MED LIST changes: -LEVO250T74 PO
[2022-06-02 12:33] LABS: BASOPHILS % (AUTO) 0.2 % (0-1); EOSINOPHILS # (AUTO) 0.1 X10'3 (0-0.9); EOSINOPHILS % (AUTO) 1.1 % (0-6); HEMATOCRIT 24.6 % (42.0-52.0); HEMOGLOBIN 8.2 g/dl (14.0-17.9); LYMPHOCYTES # (AUTO) 0.3 X10'3 (1.1-4.8); LYMPHOCYTES % (AUTO) 4.7 % (21-51); MEAN CORPUSCULAR HEMOGLOBIN 34.2 PG (27.0-31.0); MEAN CORPUSCULAR HGB CONC 33.3 g/dL (33.0-36.5); MEAN CORPUSCULAR VOLUME 102.8 FL (78-98); MEAN PLATELET VOLUME 7.1 FL (7.4-10.4); MONOCYTES # (AUTO) 0.5 X10'3 (0-0.9); MONOCYTES % (AUTO) 7.4 % (2-12); NEUTROPHILS # (AUTO) 5.6 X10'3 (1.8-7.7); NEUTROPHILS % (AUTO) 86.6 % (42-75); PLATELET COUNT 151 X10'3 (140-440); RED BLOOD COUNT 2.39 X10'6 (4.70-6.10); RED CELL DISTRIBUTION WIDTH 14.6 % (11.5-14.5); WHITE BLOOD COUNT 6.5 X10'3 (4.5-11.0)
[2022-06-02 12:41] LABS: ALANINE AMINOTRANSFERASE 26 U/L (12-78); ALBUMIN 3.1 G/DL (3.4-5.0); ALKALINE PHOSPHATASE 78 IU/L (46-116); ANION GAP 6 (8-16); ASPARTATE AMINO TRANSFERASE 21 U/L (10-37); BILIRUBIN,TOTAL 0.2 MG/DL (0.1-1.0); BLOOD UREA NITROGEN 51 MG/DL (7-18); CALCIUM 9.1 MG/DL (8.5-10.1); CHLORIDE 107 MMOL/L (99-107); CREATININE 2.04 MG/DL (0.60-1.10); GLUCOSE 131 MG/DL (70-104); POTASSIUM 4.6 MMOL/L (3.5-5.1); SODIUM 145 MMOL/L (135-145); TOTAL PROTEIN 6.3 G/DL (6.4-8.2); eGFR 31 ML/MIN
[2022-06-02] MEDS ORDERED: dexamethasone sod phosphate 10mg/ml inj IV STA (13:22)
[2022-06-02] MEDS ORDERED: CefTRIAXone 2gm/D5W 50ml BAG 50 ML IV ONE (13:25)
[2022-06-02] MEDS ORDERED: PRED20TA PO (13:50)
[2022-06-02] MEDS ORDERED: DOXY100C43 PO (13:50)
[2022-06-02 13:58] LABS: PLATELET ESTIMATE NORMAL; TOTAL CELLS COUNTED 100
[2022-06-02 14:00] LABS: HYPOCHROMASIA 1+; POLYCHROMASIA FEW
[2022-06-02 14:17] VITALS: BP 139/82
== END 2022-06-02 14:18 | disposition home or self-care (01) ==
LOC: ER 10:57
DX: J40 Bronchitis, not specified as acute or chronic (principal); Z20.822 Contact with and (suspected) exposure to COVID-19; J44.9 Chronic obstructive pulmonary disease, unspecified; Z88.8 Allergy status to other drugs, medicaments and biological substances
CPT/HCPCS: 36415; 71045; 71250; 80053; 83880; 84145; 84484; 85007; 85025; 87635; 93005; 96365; 96375; 99285; C9803; J0696; J1100

== ENCOUNTER 2022-12-25 12:02 | Emergency (ER) | payer MEDICARE, OTHER ==
[~2022-12-25] VITALS: Ht 177.8 cm; Wt 100.0 kg
[2022-12-25 12:43] LABS: BASOPHILS % (AUTO) 0.2 % (0-1); EOSINOPHILS # (AUTO) 0.1 X10'3 (0-0.9); EOSINOPHILS % (AUTO) 2.3 % (0-6); HEMATOCRIT 24.6 % (42.0-52.0); HEMOGLOBIN 7.9 g/dl (14.0-17.9); LYMPHOCYTES # (AUTO) 0.5 X10'3 (1.1-4.8); LYMPHOCYTES % (AUTO) 18.1 % (21-51); MEAN CORPUSCULAR HEMOGLOBIN 34.4 PG (27.0-31.0); MEAN CORPUSCULAR HGB CONC 32.2 g/dL (33.0-36.5); MEAN CORPUSCULAR VOLUME 106.8 FL (78-98); MEAN PLATELET VOLUME 7.2 FL (7.4-10.4); MONOCYTES # (AUTO) 0.3 X10'3 (0-0.9); MONOCYTES % (AUTO) 11.4 % (2-12); PLATELET COUNT 127 X10'3 (140-440); RED BLOOD COUNT 2.31 X10'6 (4.70-6.10); RED CELL DISTRIBUTION WIDTH 14.5 % (11.5-14.5); WHITE BLOOD COUNT 2.9 X10'3 (4.5-11.0)
[2022-12-25 12:48] LABS: ALANINE AMINOTRANSFERASE 26 U/L (12-78); ALBUMIN 3.2 G/DL (3.4-5.0); ALBUMIN/GLOBULIN RATIO 1.1 (1.1-1.5); ALKALINE PHOSPHATASE 78 IU/L (46-116); ANION GAP 4 (8-16); ASPARTATE AMINO TRANSFERASE 16 U/L (10-37); BILIRUBIN,TOTAL 0.2 MG/DL (0.1-1.0); BLOOD UREA NITROGEN 41 MG/DL (7-18); BUN/CREATININE RATIO 20.4 (10.0-20.0); CALCIUM 8.7 MG/DL (8.5-10.1); CHLORIDE 110 MMOL/L (99-107); CREATININE 2.01 MG/DL (0.60-1.10); GLUCOSE 131 MG/DL (70-104); POTASSIUM 4.9 MMOL/L (3.5-5.1); SODIUM 143 MMOL/L (135-145); TOTAL CARBON DIOXIDE 29.5 MMOL/L (24-32); eGFR 32 ML/MIN
[2022-12-25 13:09] LABS: PLATELET ESTIMATE DECREASED; TOTAL CELLS COUNTED 100
[2022-12-25] MEDS ORDERED: HYDR12.55 PO (13:43)
[2022-12-25 13:53] VITALS: BP 150/66
[2022-12-25 15:26] LABS: MAGNESIUM 2.4 MG/DL (1.5-2.4)
[2022-12-25 15:27] LABS: PHOSPHORUS 4.1 MG/DL (2.3-4.5)
[2022-12-25 19:14] LABS: CLARITY,URINE CLEAR (Clear); COLOR,URINE YELLOW (Yellow); GLUCOSE, URINE NEGATIVE (Neg); KETONES,URINE NEGATIVE (Neg); LEUKOCYTE ESTERASE ,URINE NEGATIVE (Neg); NITRITES, URINE NEGATIVE (Neg); OCCULT BLOOD,URINE TRACE-INTACT (Neg); PH,URINE 5.5 (4.8-8.0); PROTEIN,URINE NEGATIVE (Neg); UROBILINOGEN,URINE 0.2 E.U/dL (0.2-1.0)
[2022-12-25 19:24] LABS: SQUAMOUS EPITHELIAL CELL,UR FEW /LPF (FEW); UA COLLECTION TYPE NON-SPECIFIED
[2022-12-25 19:25] LABS: BACTERIA,URINE NONE SEEN /HPF (Neg); WBC,URINE 0-4 /HPF (0-4)
== END 2022-12-25 14:33 | disposition home or self-care (01) ==
LOC: ER 12:03
DX: R07.89 Other chest pain (principal); Z88.8 Allergy status to other drugs, medicaments and biological substances
CPT/HCPCS: 36415; 71045; 80053; 81001; 82306; 82570; 82728; 83540; 83550; 83735; 83880; 83970; 84100; 84484; 85007; 85025; 93005; 99285; A4615

== ENCOUNTER 2023-01-03 08:30 | Inpatient (IN) | payer MEDICARE ==
[2023-01-03] VITALS (12 sets, daily range): BP systolic 95–125; BP diastolic 58–85
[~2023-01-03] VITALS: Ht 177.8 cm; Wt 95.5 kg
[~2023-01-03 08:30] MED LIST changes: +AZIT-164 PO; -AZIT-83 PO; +HYDR12.55 PO
[2023-01-03] MEDS ORDERED: normal saline 1000ML IV soln IVB ONE (08:40)
[2023-01-03] MEDS ORDERED: methylPREDNISolone sod succ 125mg/2ml vial IV ONE (08:40)
[2023-01-03] MEDS ORDERED: ipratropium/albuterol 3ml nebule NEB ONE (08:40)
[2023-01-03] MEDS ORDERED: succinylcholine 20mg/ml inj IV ONE (08:43)
[2023-01-03 08:46] LABS: BASOPHILS % (AUTO) 0.2 % (0-1); EOSINOPHILS % (AUTO) 0 % (0-6); HEMATOCRIT 27.7 % (42.0-52.0); HEMOGLOBIN 8.9 g/dl (14.0-17.9); LYMPHOCYTES # (AUTO) 0.5 X10'3 (1.1-4.8); LYMPHOCYTES % (AUTO) 2.5 % (21-51); MEAN CORPUSCULAR HEMOGLOBIN 34.4 PG (27.0-31.0); MEAN CORPUSCULAR HGB CONC 31.9 g/dL (33.0-36.5); MEAN CORPUSCULAR VOLUME 107.8 FL (78-98); MEAN PLATELET VOLUME 7.4 FL (7.4-10.4); MONOCYTES # (AUTO) 0.7 X10'3 (0-0.9); MONOCYTES % (AUTO) 3.6 % (2-12); NEUTROPHILS # (AUTO) 18.6 X10'3 (1.8-7.7); NEUTROPHILS % (AUTO) 93.7 % (42-75); PLATELET COUNT 251 X10'3 (140-440); RED BLOOD COUNT 2.57 X10'6 (4.70-6.10); RED CELL DISTRIBUTION WIDTH 14.8 % (11.5-14.5); WHITE BLOOD COUNT 19.9 X10'3 (4.5-11.0)
[2023-01-03 08:52] LABS: ABG OXYGEN SATURATION 98.8 % (94-97); ABG PCO2 (T) 45.4 mmHg (35.0-48.0); ABG PO2 (T) 198.9 mmHg (75.0-100.0); ALLEN'S TEST POSITIVE; FCOHb 0.4 % (0.0-3.9); FMetHb 0.3 % (0.0-1.5); FO2Hb 98.1 % (94-97); RESPIRATORY RATE 14 b/min; TOTAL HEMOGLOBIN 9.2 G/dl (14.0-17.9)
--- NOTE | 2023-01-03 09:02 | NUR ---
HOLD ON THE INTUBATION PROCEDURE DUE TO SLIGHT IMPROVEMENT IN PT CONDITION AFTER PLACING HOSPITAL BIPAP AND SETTING ,PT RR WAS IN HIGH 50'S TO 60'S .BP WAS IN LOW 80'S WITH IV FLUIDS THE BP HAS BEEN IMPROVED TO 110/87.RT REMINED AT BEDSIDE ,GOING TO GIVE NEB TX.
[2023-01-03 09:12] LABS: ALANINE AMINOTRANSFERASE 29 U/L (12-78); ALBUMIN 3.4 G/DL (3.4-5.0); ALBUMIN/GLOBULIN RATIO 1.1 (1.1-1.5); ALKALINE PHOSPHATASE 93 IU/L (46-116); ANION GAP 12 (8-16); ASPARTATE AMINO TRANSFERASE 29 U/L (10-37); BILIRUBIN,TOTAL 0.3 MG/DL (0.1-1.0); BLOOD UREA NITROGEN 57 MG/DL (7-18); BUN/CREATININE RATIO 17.3 (10.0-20.0); CALCIUM 8.8 MG/DL (8.5-10.1); CHLORIDE 103 MMOL/L (99-107); GLUCOSE 199 MG/DL (70-104); POTASSIUM 4.2 MMOL/L (3.5-5.1); SODIUM 140 MMOL/L (135-145); TOTAL PROTEIN 6.6 G/DL (6.4-8.2); eGFR 18 ML/MIN
[2023-01-03 09:25] LABS: PLATELET ESTIMATE NORMAL; TOTAL CELLS COUNTED 100
[2023-01-03] MEDS ORDERED: azithromycin/NS 500mg/250ml 250 ML IV ONE (09:40)
[2023-01-03] MEDS ORDERED: CefTRIAXone/D5W-Rocephin 1gm 50 ML IV ONE (09:40)
[2023-01-03] MEDS: morphine 2 MG/ML inj. syringe IV PRN ×4 (09:54→19:29)
[2023-01-03] MEDS ORDERED: etomidate 2mg/ml inj. ONE (10:00)
[2023-01-03] MEDS ORDERED: PERFLUTREN PROTEIN-A MICROSPHR (Optison) 0.22 MG/ML 3ML VIAL IV ONE (10:10)
[2023-01-03] MEDS: normal saline 1000ml 1,000 ML IV SCH ×3 (10:38→14:10)
[2023-01-03] MEDS ORDERED: normal saline 1000ml 1,000 ML IV ONE (11:25)
--- NOTE | 2023-01-03 11:48 | NUR ---
NOTIFIED DR WILLAMS REGARDING PT TROP 1846 , PER MD PT WILL BE ADMITTED TO ICU DUE TO LOW BP AND ELEVATED TROP.
[2023-01-03] MEDS ORDERED: magnesium 4gm in 100ml NS 100 ML IV PRN (13:15)
[2023-01-03] MEDS ORDERED: ipratropium/albuterol 3ml nebule NEB PRN (13:15)
[2023-01-03] MEDS ORDERED: potassium Cl 20 mEq SR tablet PO PRN ×2 (13:15)
[2023-01-03] MEDS ORDERED: dextrose 50%-water 50ml dispensing syringe IV PRN ×2 (13:15)
[2023-01-03] MEDS ORDERED: glucagon, human recombinant 1mg kit SUBCUT PRN (13:15)
[2023-01-03] MEDS ORDERED: HYDROcodone/acetaminophen 5mg/325mg tablet PO PRN (13:15)
[2023-01-03] MEDS ORDERED: potassium Cl 40MEQ/1/2NS 520ml 520 ML IV PRN (13:15)
[2023-01-03] MEDS ORDERED: albuterol 2.5 MG/3 ML nebule NEB PRN (13:15)
[2023-01-03] MEDS ORDERED: acetaminophen 325mg tablet PO PRN ×2 (13:15)
[2023-01-03] MEDS ORDERED: MESSAGE TO PHARMACY PO ONE (13:15)
[2023-01-03] MEDS ORDERED: HYDROcodone/acetaminophen 10/325mg tab PO PRN ×2 (13:15→15:10)
[2023-01-03] MEDS ORDERED: insulin Lispro (HumaLOG) vial - multi-dose SQ SCH (13:15)
[2023-01-03] MEDS ORDERED: mag hydrox/Alum hydrox/simeth 30ml oral suspension PO PRN (13:15)
[2023-01-03] MEDS ORDERED: DEXTROSE 15 GM of carb/4 tabs (each vial/BOTTLE has 4 tablets) PO PRN ×2 (13:15)
[2023-01-03] MEDS ORDERED: ondansetron/PF 4mg/2ml inj IV PRN (13:15)
[2023-01-03] MEDS ORDERED: magnesium hydroxide 30ml (MOM) UD suspension PO PRN (13:15)
[2023-01-03] MEDS ORDERED: FLUT12AE22 PO (13:40)
[2023-01-03] MEDS ORDERED: METO-395 PO (13:40)
[2023-01-03] MEDS ORDERED: TACR0.5C20 PO (13:40)
[2023-01-03] MEDS ORDERED: PRE5T PO (13:40)
[2023-01-03] MEDS ORDERED: [UNRECOGNIZED DRUG - CODE] PO ×2 (13:40)
[2023-01-03] MEDS ORDERED: FURO40TA4 PO (13:40)
[2023-01-03] MEDS ORDERED: HYDR12.55 PO (13:40)
[2023-01-03] MEDS ORDERED: METO25TA6 PO (13:44)
[2023-01-03] MEDS ORDERED: azithromycin 250mg tablet PO SCH (15:10)
[2023-01-03] MEDS ORDERED: vancomycin inj 1,000 MG in normal saline 250ml IV soln 250 ML IV ONE (15:25)
--- NOTE | 2023-01-03 16:00 | NUR ---
Patient in room PCU 3012. I have received report from bren SHERIFF and had the opportunity to ask questions and assume patient care.Pt settled into room, Monitoring equipment applied. Pt V/S stable. Family at bedside.Foi2 70% on Bipap 94% RR 36. Family to bring in antirejection meds. Addendum: 01/03/23 at 1652 by Annetta Pablo RN Amended: Links added.
[2023-01-03] MEDS ORDERED: sulfamethoxazole/trimethoprim DS (800/160mg) tablet PO SCH (16:03)
[2023-01-03] MEDS ORDERED: vancomycin/NS 1 GM ADD-VANTAGE 250 ML X 1 DOSE IV ONE (16:15)
[2023-01-03] MEDS ORDERED: vancomycin/NS 1 GM ADD-VANTAGE 250 ML X 1 DOSE IV PRN (16:45)
--- NOTE | 2023-01-03 18:32 | NUR ---
Problems reprioritized. Patient report given, questions answered & plan of care reviewed with ZOE SHERIFF. Pt family in room, Fio2 at 90%. Home meds for rejectin taken to RX, receipt placed in chart. Addendum: 01/03/23 at 1834 by Annetta Pablo RN Amended: Links added.
[2023-01-03] MEDS: albuterol 2.5 MG/3 ML nebule NEB SCH ×2 (19:16→22:38)
[2023-01-03] MEDS ORDERED: morphine 10mg/0.5ml (conc. morphine) oral syringe PO PRN (19:50)
[2023-01-03] MEDS ORDERED: K and/or MAG REPLACEMENT MC SCH (20:00)
[2023-01-03] MEDS ORDERED: calcium carbonate/vitamin D3 tablet PO SCH (20:00)
[2023-01-03] MEDS ORDERED: metoprolol tartrate 25mg tablet PO SCH (20:00)
[2023-01-03] MEDS ORDERED: tacrolimus anhydrous 1mg capsule PO SCH (20:00)
[2023-01-03] MEDS ORDERED: pantoprazole 40mg Tablet.DR PO SCH (20:00)
[2023-01-03] MEDS: cefepime 1GM/NS ADD-VANTAGE 100 ML IV SCH (20:17)
[2023-01-03] MEDS: docusate sod 100mg capsule PO SCH (20:18)
[2023-01-03] MEDS: ISAVUCONAZONIUM SULFATE 186 MG PO SCH (20:29)
[2023-01-03] MEDS ORDERED: pravastatin 40mg tablet PO SCH (21:00)
[2023-01-03] MEDS ORDERED: Melatonin 3mg tablet PO SCH (21:00)
[2023-01-03] MEDS ORDERED: insulin glargine (Lantus) pen - multi-dose SQ SCH (21:00)
[2023-01-03] MEDS ORDERED: traZODone 50mg tablet PO SCH (21:00)
[2023-01-03] MEDS ORDERED: EVEROLIMUS 1 MG PO SCH (21:00)
[2023-01-03] MEDS: methylPREDNISolone sod succ 125mg/2ml vial IV SCH (21:19)
[2023-01-03] MEDS: LIDOcaine 5% patch TP SCH ×2 (22:00→22:12)
[2023-01-03] MEDS: budesonide 0.5mg/2ml UD nebule IH SCH (22:38)
[2023-01-03] MEDS: pantoprazole 40MG/NS 100ML BAG 100 ML IV SCH (23:14)
[2023-01-04] VITALS: BP 98/50
[2023-01-04] MEDS ORDERED: normal saline 500ml IV soln 500 ML IV ONE (00:35)
[2023-01-04] MEDS ORDERED: NORepinephrine 8mg/ 250ml NS 250 ML IV SCH (00:35)
[2023-01-04] MEDS ORDERED: LidoCAINE 2% Topical Jelly 11mL syringe TOP ONE (00:40)
[2023-01-04 01:00] VITALS: BP 88/43
[2023-01-04] MEDS: normal saline 1000ml 1,000 ML IV SCH ×2 (01:30→05:51)
[2023-01-04 02:00] VITALS: BP 105/41
[2023-01-04] MEDS: albuterol 2.5 MG/3 ML nebule NEB SCH ×2 (02:52→07:23)
[2023-01-04 03:00] VITALS: BP 100/50
[2023-01-04] MEDS ORDERED: VANCOMYCIN LEVEL IV SCH (03:00)
[2023-01-04 04:00] VITALS: BP 98/50
[2023-01-04 04:15] LABS: CLARITY,URINE SLIGHTLY CLOUDY (Clear); COLOR,URINE YELLOW (Yellow); GLUCOSE, URINE NEGATIVE (Neg); KETONES,URINE TRACE mg/dl (Neg); LEUKOCYTE ESTERASE ,URINE NEGATIVE (Neg); NITRITES, URINE NEGATIVE (Neg); OCCULT BLOOD,URINE SMALL (Neg); PROTEIN,URINE 30 mg/dl (Neg); UROBILINOGEN,URINE 0.2 E.U/dL (0.2-1.0)
[2023-01-04 04:31] LABS: BASOPHILS % (AUTO) 0.1 % (0-1); EOSINOPHILS % (AUTO) 0 % (0-6); HEMATOCRIT 24.2 % (42.0-52.0); HEMOGLOBIN 7.7 g/dl (14.0-17.9); LYMPHOCYTES # (AUTO) 0.1 X10'3 (1.1-4.8); LYMPHOCYTES % (AUTO) 1.1 % (21-51); MEAN CORPUSCULAR HEMOGLOBIN 34.7 PG (27.0-31.0); MEAN CORPUSCULAR VOLUME 108.5 FL (78-98); MEAN PLATELET VOLUME 7.2 FL (7.4-10.4); MONOCYTES # (AUTO) 0.6 X10'3 (0-0.9); MONOCYTES % (AUTO) 5.6 % (2-12); NEUTROPHILS % (AUTO) 93.2 % (42-75); PLATELET COUNT 124 X10'3 (140-440); RED BLOOD COUNT 2.23 X10'6 (4.70-6.10); RED CELL DISTRIBUTION WIDTH 15.1 % (11.5-14.5); WHITE BLOOD COUNT 10.7 X10'3 (4.5-11.0)
[2023-01-04 04:37] LABS: UA COLLECTION TYPE FOLEY CATH
[2023-01-04 04:40] LABS: WBC,URINE 0-4 /HPF (0-4)
[2023-01-04 04:41] LABS: AMORPHOUS URATES 2+; BACTERIA,URINE FEW /HPF (Neg); MUCUS STRANDS FEW /LPF (Neg); SQUAMOUS EPITHELIAL CELL,UR FEW /LPF (FEW); TRANSITIONAL EPI CELLS,URINE MODERATE /HPF
[2023-01-04 05:00] VITALS: BP 92/53
[2023-01-04 06:15] LABS: ALANINE AMINOTRANSFERASE 27 U/L (12-78); ALBUMIN 2.5 G/DL (3.4-5.0); ALBUMIN/GLOBULIN RATIO 0.9 (1.1-1.5); ALKALINE PHOSPHATASE 54 IU/L (46-116); ANION GAP 13 (8-16); ASPARTATE AMINO TRANSFERASE 28 U/L (10-37); BILIRUBIN,TOTAL 0.2 MG/DL (0.1-1.0); BLOOD UREA NITROGEN 63 MG/DL (7-18); BUN/CREATININE RATIO 17.9 (10.0-20.0); CALCIUM 7.8 MG/DL (8.5-10.1); CHLORIDE 106 MMOL/L (99-107); CREATININE 3.52 MG/DL (0.60-1.10); GLUCOSE 184 MG/DL (70-104); POTASSIUM 5.4 MMOL/L (3.5-5.1); SODIUM 141 MMOL/L (135-145); TOTAL CARBON DIOXIDE 22.3 MMOL/L (24-32); TOTAL PROTEIN 5.4 G/DL (6.4-8.2); VANCOMYCIN,RANDOM 11.4 UG/ML; eGFR 17 ML/MIN
--- NOTE | 2023-01-04 06:15 | NUR ---
Patient in room PCU 3012. I have received report from Radha SHERIFF and had the opportunity to ask questions and assume patient care. lab at bedside. pt awake and alert. Call light in reach. Bipap in place. Fio2 70% o2 sat 96%. Addendum: 01/04/23 at 0636 by Annetta Pablo RN Amended: Links added.
--- NOTE | 2023-01-04 06:20 | NUR ---
Patient report given, questions answered & plan of care reviewed with JAZIEL Landry
--- NOTE | 2023-01-04 07:59 | NUR ---
PAGER ID: [phone] MESSAGE: [phone] Narayan. Please call or come to [facility]. Thank you, Annetta CRAIG
[2023-01-04] MEDS ORDERED: folic acid 1mg tablet PO SCH (08:00)
[2023-01-04] MEDS ORDERED: cholecalciferol (vitamin D3) 1,000 unit (25mcg) tablet PO SCH (08:00)
[2023-01-04] MEDS ORDERED: azithromycin/NS 500mg/250ml 250 ML IV SCH (08:00)
[2023-01-04] MEDS ORDERED: aspirin 81mg, enteric-coated 1 TAB TABLET.DR PO SCH (08:00)
[2023-01-04] MEDS ORDERED: cetirizine 10mg tablet PO SCH (08:00)
[2023-01-04] MEDS ORDERED: CefTRIAXone/D5W-Rocephin 1gm 50 ML IV SCH (08:00)
[2023-01-04] MEDS ORDERED: sertraline 50mg tablet PO SCH (08:00)
[2023-01-04] MEDS ORDERED: ferrous sulfate 325mg tablet PO SCH (08:00)
[2023-01-04] MEDS ORDERED: acyclovir 200 MG capsule PO SCH (08:00)
[2023-01-04] MEDS: methylPREDNISolone sod succ 125mg/2ml vial IV SCH ×2 (08:07→12:21)
[2023-01-04] MEDS: cefepime 1GM/NS ADD-VANTAGE 100 ML IV SCH (08:07)
--- NOTE | 2023-01-04 08:30 | NUR ---
Dr Bhardwaj at bedside. Code status changed to comfort care. Total Family in agreement. Pt and all belongings moved to 3010. Comfort cart ordered. Other Family on there way from out of town. Pt refusing Po meds. Morphine 2mg given for back pain. Pt remains on Bipap for comfort. pt alert and orientated.
[2023-01-04] MEDS ORDERED: LORazepam 0.5 MG tablet PO PRN (08:35)
[2023-01-04] MEDS ORDERED: hyoscyamine 0.125mg TAB.SUBL SL PRN (08:35)
[2023-01-04] MEDS ORDERED: LORazepam 2 mg/ml vial IV PRN ×2 (08:35)
[2023-01-04] MEDS ORDERED: furosemide 20 MG/2 ML vial IV PRN (08:45)
[2023-01-04] MEDS ORDERED: furosemide 20 MG/2 ML vial IV ONE (08:45)
[2023-01-04] MEDS: docusate sod 100mg capsule PO SCH (08:56)
[2023-01-04] MEDS: morphine 2 MG/ML inj. syringe IV PRN ×4 (08:56→17:33)
[2023-01-04] MEDS: budesonide 0.5mg/2ml UD nebule IH SCH (09:00)
--- NOTE | 2023-01-04 09:03 | NUR ---
Pt admit for sepsis, acute worsening chronic respiratory failure, PNA, A.fib with RVR, and acute worsening of chronic renal failure. Patient's code status is DNR with comfort care. LBM 01/03 per EMR. Will continue to follow per LOS. Recommendations: 1) Bowel care per comfort care measures Addendum: 01/04/23 at [address] Amended: Links added.
[2023-01-04] MEDS: pantoprazole 40MG/NS 100ML BAG 100 ML IV SCH (09:47)
[2023-01-04] MEDS: ISAVUCONAZONIUM SULFATE 186 MG PO SCH (09:47)
[2023-01-04] MEDS: morphine 10mg/0.5ml (conc. morphine) oral syringe PO PRN ×2 (11:17→16:59)
--- NOTE | 2023-01-04 14:29 | NUR ---
family states pt showing anxiety by pulling at mask and scraching himself, drsg applied to upper lft arm. ativan 1mg given.
[2023-01-04] MEDS: LORazepam 2 mg/ml vial IV PRN ×2 (14:32→17:00)
[2023-01-04] MEDS ORDERED: vancomycin/NS 1 GM ADD-VANTAGE 250 ML X 1 DOSE IV ONE (16:00)
--- NOTE | 2023-01-04 17:24 | NUR ---
family at bedside.. pt removed mask. O2 sat dropping. pt sob RR 40-45. Pt actively passing away.requesting some relief for Pt morphine given for air hunger. Pharmacy informed of no oral morphine up in the omnicell with pt and family in distress.
--- NOTE | 2023-01-04 18:01 | NUR ---
PAGER ID: [phone] MESSAGE: 805Stephanie raman at [phone]. Annetta CRAIG
--- NOTE | 2023-01-04 18:17 | NUR ---
RN IS TO DOCUMENT YES TO ALL APPLICABLE AREAS Pronouncement of :1753 1. Time Physician Notified:Dr Bhardwaj 2. Date of :01/04/23 3. Time of : 01/04/23 4. DNR/Withdraw life support documented:yes 5. Monitor strip has been placed on chart:yes 6. Assessment process is of one-minute duration and includes following criteria: a) Patient is unresponsive to all stimuli: yes b) Pupils fixed and non-reactive:yes c) Auscultation of precordium reveals absence of heart tones:yes d) Auscultation of lungs reveals absence of breath sounds:yes e) Absence of blood pressure / all vital signs:yes f) QRS complexes are not present on monitor / EKG strip:yes g) Pacer spikes without capture:n/a 4. Comments: Addendum: 01/04/23 at 1820 by Annetta Pablo RN Amended: Links added.
--- NOTE | 2023-01-04 18:20 | NUR ---
Problems reprioritized. Patient report given, questions answered & plan of care reviewed with Esthela SHERIFF. [facility] notified of Pt. they released PT.Family remains at bedside. Addendum: 01/04/23 at 1822 by Annetta Pablo RN Amended: Links added.
--- NOTE | 2023-01-04 18:27 | NUR ---
Patient in room PCU 3010. I have received report from Annetta SHERIFF and had the opportunity to ask questions and assume patient care. Family remains at bedside.
--- NOTE | 2023-01-04 19:00 | NUR ---
Mortuary notified of pt's passing. Home medications that were stored in pharmacy returned to spouse. Family remains at bedside.
--- NOTE | 2023-01-04 19:50 | NUR ---
Family leaving at this time. Mortuary here for patient. Post mortem care completed and patient wrapped in sheet, transported out of hospital w/o incident.
[2023-01-06 10:18] LABS: ABG BASE EXCESS -5.7 mmol/L (-2.0-2.0); ABG HCO3 20.3 mmol/L (22.0-26.0); ABG OXYGEN SATURATION 98.4 % (94-97); ABG PCO2 (T) 41.6 mmHg (35.0-48.0); ABG PO2 (T) 159.6 mmHg (75.0-100.0); ALLEN'S TEST Yes; FCOHb 0.5 % (0.0-3.9); FMetHb 0.3 % (0.0-1.5); FO2Hb 97.6 % (94-97); PATIENT TEMPERATURE 36.6; TOTAL HEMOGLOBIN 8.1 G/dl (14.0-17.9)
== END 2023-01-04 20:05 | DRG 871 ==
LOC: ER 08:30 → ED HOLD 13:25 → PCU 3S 16:19
PROVIDERS: ADMIT Family Medicine; ATTEND Family Medicine
PROC: 5A09357 Assistance with Respiratory Ventilation, Less than 24 Consecutive Hours, Continuous Positive Airway Pressure (ICD-10-PCS; principal; 2023-01-03)
DX: A41.9 Sepsis, unspecified organism (principal); I21.A1 Myocardial infarction type 2; J96.21 Acute and chronic respiratory failure with hypoxia; I50.23 Acute on chronic systolic (congestive) heart failure; J44.1 Chronic obstructive pulmonary disease with (acute) exacerbation; Z94.2 Lung transplant status; N17.9 Acute kidney failure, unspecified; Z51.5 Encounter for palliative care; E78.5 Hyperlipidemia, unspecified; G47.33 Obstructive sleep apnea (adult) (pediatric); I48.0 Paroxysmal atrial fibrillation; D50.9 Iron deficiency anemia, unspecified; G89.29 Other chronic pain; M54.9 Dorsalgia, unspecified; I95.9 Hypotension, unspecified; L40.9 Psoriasis, unspecified; Z77.090 Contact with and (suspected) exposure to asbestos; N18.9 Chronic kidney disease, unspecified; Z82.49 Family history of ischemic heart disease and other diseases of the circulatory system; I25.2 Old myocardial infarction; Z83.3 Family history of diabetes mellitus; Z85.828 Personal history of other malignant neoplasm of skin; Z86.718 Personal history of other venous thrombosis and embolism; Z88.8 Allergy status to other drugs, medicaments and biological substances; Z79.899 Other long term (current) drug therapy; Z79.82 Long term (current) use of aspirin; Z90.49 Acquired absence of other specified parts of digestive tract; Z99.81 Dependence on supplemental oxygen
CPT/HCPCS: 36415; 36600; 71045; 80053; 80197; 80202; 81001; 82803; 82948; 83605; 83735; 83880; 83930; 84484; 85007; 85018; 85025; 85610; 87040; 87081; 87502; 87503; 93005; 93306; 93970; 94640; 94660; 94760; 99285; A4615; A6209; A6213; A6250; A6258; C9113; G0378; J0330; J0456; J0692; J0696; J1815; J1940; J2060; J2270; J2930; J3370; J3490; J7030; J7040; J7507